=== PATIENT | female | born 2005 | race Caucasian/White ===

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

== ENCOUNTER → 2023-03-29 | Outpatient (CLI) | payer OTHER | LOC: M SOG 08:09 | PROVIDERS: ATTEND Orthopaedic Surgery | DX: S82.65XA Nondisplaced fracture of lateral malleolus of left fibula, initial encounter for closed fracture (principal); X58.XXXA Exposure to other specified factors, initial encounter; Y92.9 Unspecified place or not applicable ==

== ENCOUNTER → 2023-05-13 | Outpatient (CLI) | payer OTHER | LOC: M SOG 11:31 | PROVIDERS: ATTEND Physician Assistant | DX: S82.65XD Nondisplaced fracture of lateral malleolus of left fibula, subsequent encounter for closed fracture with routine healing (principal) ==

== ENCOUNTER → 2024-02-28 | Outpatient (REF) | payer OTHER ==
[~2024-02-28] MED LIST changes: +CEFD1CAP9; -CEFD300C41
[2024-02-29 14:39] LABS: BASO # 0.1 10^3/uL (0.0-0.2); BASO % 0.7 % (0.0-1.0); EOS % 0.5 % (0.0-3.0); HEMATOCRIT 34.5 % (36.0-47.0); HEMOGLOBIN 10.7 g/dl (12.0-15.5); LYMPH # 1.9 10^3/uL (1.5-5.0); MEAN CORPUSCULAR HEMOGLOBIN 24.3 pg (27.0-33.0); MEAN CORPUSCULAR VOLUME 78.4 fl (80.0-96.0); MONO # 0.5 10^3/uL (0.0-0.8); MONO % 6.8 % (2.0-8.0); NEUTROPHILS % 66.2 % (36.0-66.0); PLATELET COUNT, AUTOMATED 268 10^3/uL (150-450); WHITE BLOOD COUNT 7.6 10^3/uL (4.0-10.0)
[2024-02-29 14:54] LABS: HEMOGLOBIN A1c 5.5 % (4.0-6.0); THYROID STIMULATING HORMONE 2.083 uIU/ML (0.48-4.17)
[2024-02-29 14:56] LABS: FERRITIN 3.5 NG/ML (7.3-270.7)
[2024-02-29 14:57] LABS: IRON (FE) 14 UG/DL (50-170); TOTAL 25(OH) VITAMIN D 26.4 NG/ML (20.0-100.0)
[2024-02-29 14:59] LABS: PERCENT SATURATION 3.7 % (13.2-45.0); TOTAL IRON BINDING CAPACITY 382 UG/DL (250-425)
[2024-02-29 15:00] LABS: ALKALINE PHOSPHATASE 85 U/L (46-116); ALT/SGPT 15 U/L (7.0-40); AST/SGOT < 8 U/L (<34); BILIRUBIN,TOTAL 0.2 MG/DL (0.3-1.2); BLOOD UREA NITROGEN 10 MG/DL (9-23); CALCIUM LEVEL 9.4 MG/DL (8.5-10.1); CARBON DIOXIDE LEVEL 26 MMOL/L (20-31); CHLORIDE LEVEL 106 MMOL/L (98-107); CHOLESTEROL LEVEL 141 MG/DL (<200); CHOLESTEROL RISK RATIO 3.19 (<5); CREATININE FOR GFR 0.54 MG/DL (0.55-1.30); GLUCOSE, FASTING 90 MG/DL (60-100); HDL CHOLESTEROL 44.2 MG/DL (>40); LDL CHOLESTEROL 81.4 MG/DL (<100); NON-HDL-C 96.8 MG/DL; SODIUM LEVEL 138 MMOL/L (136-145); TRIGLYCERIDES LEVEL 77 MG/DL (<150)
[2024-02-29 15:21] LABS: IMMUNOGLOBULIN A 153.7 MG/DL (40-350)
== END ==
LOC: M LAB REF 14:10
PROVIDERS: ATTEND Nurse Practitioner Family
DX: E66.3 Overweight (principal); E55.9 Vitamin D deficiency, unspecified; Z86.39 Personal history of other endocrine, nutritional and metabolic disease; R53.83 Other fatigue; Z11.9 Encounter for screening for infectious and parasitic diseases, unspecified; R14.0 Abdominal distension (gaseous)

== ENCOUNTER → 2024-04-21 | Outpatient (REF) | payer OTHER ==
[2024-04-21 13:13] LABS: URINE PREG TEST NEGATIVE (NEGATIVE)
[2024-04-21 13:17] LABS: AMORPHOUS SEDIMENT SMALL (NEGATIVE); APPEARANCE, URINE TURBID (CLEAR); BACTERIA, URINE AUTO NEGATIVE (NEGATIVE); BILIRUBIN, URINE AUTO NEGATIVE (NEGATIVE); BLOOD, URINE BLOOD NEGATIVE (NEGATIVE); COLOR, URINE YELLOW (YELLOW); GLUCOSE, URINE (UA) AUTO NEGATIVE (NEGATIVE); KETONE, URINE AUTO NEGATIVE (NEGATIVE); LEUKOCYTE ESTERASE, URINE AUTO NEGATIVE (NEGATIVE); MUCUS, URINE SMALL (NEGATIVE); NITRITE, URINE AUTO NEGATIVE (NEGATIVE); PROTEIN, URINE AUTO NEGATIVE (NEGATIVE); RBC, URINE AUTO 0 /HPF (0-3); SPECIFIC GRAVITY URINE AUTO 1.018 (1.002-1.035); SQUAMOUS EPITHELIAL CELL UR AU 0 /HPF (0-6); UROBILINOGEN, URINE AUTO 0.2 mg/dL (0.0-2.0); WBC, URINE AUTO 0 /HPF (0-3)
== END ==
LOC: M LAB REF 12:20
PROVIDERS: ATTEND Nurse Practitioner Family
DX: R11.2 Nausea with vomiting, unspecified (principal); R19.7 Diarrhea, unspecified

== ENCOUNTER → 2024-09-26 | Outpatient (REF) | payer OTHER ==
[2024-09-26 18:16] LABS: KETONE, URINE AUTO RFX TRACE mg/dL (NEGATIVE); LEUKOCYTE ESTERASE UR AUTO RFX NEGATIVE (NEGATIVE); MUCUS, URINE RFX LARGE (NEGATIVE); NITRITE, URINE AUTO RFX NEGATIVE (NEGATIVE); RBC, URINE AUTO RFX 2 /HPF (0-3); SQUAM EPITHELIAL CELL UR AURFX 3 /HPF (0-6)
[2024-09-26 20:52] LABS: Trichomonas vaginalis (AMP) NOT DETECTED (NEGATIVE)
[2024-09-26 21:16] LABS: GC DNA AMPLIFICATION NEGATIVE (NEGATIVE)
== END ==
LOC: M LAB REF 17:39
PROVIDERS: ATTEND Nurse Practitioner Family
DX: R30.0 Dysuria (principal)

== ENCOUNTER → 2024-12-05 | Outpatient (REF) | payer OTHER | LOC: M LAB REF 17:50 | PROVIDERS: ATTEND Student in an Organized Health Care Education/Training Program | DX: J02.9 Acute pharyngitis, unspecified (principal) ==

== ENCOUNTER → 2024-12-13 | Outpatient (REF) | payer OTHER ==
[2024-12-13 15:28] LABS: MONO SCRN NEGATIVE (NEGATIVE)
== END ==
LOC: M LABWUC 14:34
PROVIDERS: ATTEND Student in an Organized Health Care Education/Training Program
DX: R53.83 Other fatigue (principal)

== ENCOUNTER → 2025-06-06 | Outpatient (REF) | payer OTHER ==
[2025-06-06 16:21] LABS: Trichomonas vaginalis (AMP) NOT DETECTED (NEGATIVE)
[2025-06-06 16:44] LABS: GC DNA AMPLIFICATION NEGATIVE (NEGATIVE)
== END ==
LOC: M SFHCWAGY 14:45
PROVIDERS: ATTEND Nurse Practitioner Family
DX: Z11.3 Encounter for screening for infections with a predominantly sexual mode of transmission (principal)